=== PATIENT | male | born 1970 | race Hispanic/Latino ===

== ENCOUNTER 2022-11-13 13:58 | Emergency (ER) | payer OTHER, BC, SELFPAY ==
--- NOTE | ~2022-11-13 | XR_ITS ---
EXAMINATION: XR wrist LT min 3V DATE: 11/13/2022 14:17 INDICATION: Hyperextension injury with pain and swelling to the left wrist TECHNIQUE: Posteroanterior, ulnar deviation, oblique, and lateral views of the left wrist were obtain ed. COMPARISON: none FINDINGS: Alignment is normal. No fracture. Joint spaces are normal. Mild soft tissue swelling over the dorsum of the carpus. IMPRESSION: 1. No osseous abnormality. Reviewed, dictated and finalized at location A. IMPRESSION: 1. No osseous abnormality.
--- NOTE | 2022-11-13 14:00 | ED.UPPEXIN ---
HPI - Extremity Injury (Upper) General Chief Complaint: Extremity Injury, Upper Stated Complaint: INJURED L WRIST Time Seen by Provider: 11/13/22 14:00 Source: patient Mode of arrival: ambulatory Limitations: no limitations History of Present Illness HPI narrative: Nguyễn is a 51-year-old male patient presenting to the clinic today with complaints of a left wrist injury while he was at work today. He report he hyperextended the wrist when he was opening of the car door/between storage bin. Reports pain to the entire left wrist. Pain is nonradiating at this time. No obvious deformity. Related Data Home Medications Medication Instructions Recorded Confirmed lisinopril 10 mg tablet 10 mg PO DAILY 02/18/19 11/13/22 atorvastatin 20 mg tablet 20 mg PO QPM 08/25/19 11/13/22 metoprolol succinate 25 mg 25 mg PO DAILY 08/25/19 11/13/22 tablet,extended release 24 hr amlodipine 5 mg tablet 5 mg PO DAILY 11/13/22 11/13/22 clonidine HCl 0.1 mg tablet 0.1 mg PO DAILY 11/13/22 11/13/22 dapagliflozin propanediol 10 mg 10 mg PO DAILY 11/13/22 11/13/22 tablet (Farxiga) Allergies Allergy/AdvReac Type Severity Reaction Status Date / Time No Known Allergies Allergy Verified 11/13/22 14:09 Review of Systems Review of Systems: Pertinent positives per HPI. Patient denies any fever, chills, rash, headache, visual changes, dizziness, cough, runny nose, sore throat, shortness of breath, chest pain, palpitations, nausea, vomiting, diarrhea, constipation, abdominal pain, or any urinary issues. [facility] Past Medical History Medical History (Updated 11/13/22 @ 14:52 by Rashid Gregg APRN) Type 2 diabetes mellitus with hyperglycemia Family History Family History Grandparent Family history of alcoholism Mother Family history of alcoholism Family history of kidney disease Other Diabetes mellitus Family history of type 2 diabetes mellitus Social History Social History Smoking status: Never smoker Second hand tobacco smoke exposure: No Alcohol intake: current Comments At the time of my signature, I reviewed and agree with the nursing past medical, surgical, social, and family history. There is no relevant family history pertinent to the patient complaint. Exam Narrative: General: Well-developed, well nourished, in no apparent distress Head: Normocephalic, atraumatic. Cardio: Regular rate and rhythm, s1 and s2 normal, no murmur appreciated. Resp: Clear to auscultation bilaterally, no rhonchi, rales, wheezing or rubs. Musculoskeletal: No deformity, no bruising, mild swelling, tender to palpation over the entire dorsal and volar wrist, limited flexion and extension of the left wrist due to pain, unable to make a tight fist due to pain, peripheral pulse strong, no edema, no cyanosis, normal gait and station Course Course Emergency Course: Portions of this record may have been created with voice recognition software. Level of Care: Express Care Visit Vital Signs Vital signs: Vital signs reviewed MDM - Extremity Injury (Upper) MDM Narrative Medical decision making narrative: At the time of visit patient is resting on the exam table. Ice pack was given. X-ray of the left wrist was negative for any sign of fracture or malalignment. I suspect patient has a left wrist sprain. Supportive measures were discussed with the patient he voiced understanding discharge instructions agrees to treatment plan. Garrick wrap was placed. Differential Diagnosis Differential diagnosis: Likely sprain and strain of wrist and fracture of wrist Discharge Plan Discharge Clinical Impression: Left wrist sprain Qualifiers: Encounter type: initial encounter Qualified Code(s): S63.502A - Unspecified sprain of left wrist, initial encounter Patient Disposition: Home, Self-Care Condition: Stable
[2022-11-13 14:10] VITALS: BP 148/94; PULSE 98; RESP 16; TEMP 36.6; O2SAT 100
== END 2022-11-13 14:55 | disposition home or self-care (01) ==
PROVIDERS: Emergency Provider Nurse Practitioner Family; PCP Family Medicine
DX: S63.502A Unspecified sprain of left wrist, initial encounter (principal); X50.9XXA Other and unspecified overexertion or strenuous movements or postures, initial encounter; Y99.0 Civilian activity done for income or pay; E11.9 Type 2 diabetes mellitus without complications
CPT/HCPCS: 73110; 99213; G0463